=== PATIENT | male | born 1955 | race American Indian/Alaskan Native ===

== ENCOUNTER 2017-10-12 07:14 | Day surgery (SDC) | payer MEDICAID ==
[2017-10-12 07:33] VITALS: BMI 26.4
[2017-10-12 07:58] VITALS: O2SAT 100
[2017-10-12] MEDS ORDERED: Lactated Ringer's 1,000 ML IV ONE ×2 (09:05)
[2017-10-12] MEDS ORDERED: Propofol 10 mg/ml Inj (20 ML) ONE (09:14)
[2017-10-12 09:53] VITALS: TEMP 98.2
[2017-10-12 10:33] VITALS: RESP 18
[2017-10-12 10:35] VITALS: BP 121/83; PULSE 52
== END 2017-10-12 10:45 | disposition home or self-care (01) ==
LOC: C.ENDO 07:14
PROVIDERS: ATTEND Internal Medicine Gastroenterology
DX: K25.9 Gastric ulcer, unspecified as acute or chronic, without hemorrhage or perforation (principal); K29.70 Gastritis, unspecified, without bleeding; R10.11 Right upper quadrant pain
CPT/HCPCS: 43239; 88305; 88342; J2001; J2704; J7120